=== PATIENT | female | born 2000 | race Caucasian/White ===

== ENCOUNTER → 2022-11-20 08:47 | Outpatient (CLI) | payer OTHER, SELFPAY ==
--- NOTE | 2022-11-20 08:59 | XR_ITS ---
FINAL REPORT TECHNIQUE: Sacrum and coccyx 3 views CLINICAL HISTORY: .SCOLIOSIS, ENDOMETRIOSIS, PREVIOUS BACK SURGERY COMPARISON: None FINDINGS: SACRUM AND COCCYX: Views of the sacrum and coccyx failed to reveal any evidence of acute bony abnormality. No evidence of fracture is seen. There are postoperative changes present consistent with an anterior and posterior L5-S1 fusion. IMPRESSION: No acute bony abnormality present. Postoperative changes compatible with an anterior and posterior L5-S1 fusion. Reviewed, Interpreted and Dictated by Bishop Hurtado MD Transcribed by Pinky Champion Authenticated and [facility]
--- NOTE | 2022-11-20 09:04 | XR_ITS ---
FINAL REPORT CLINICAL HISTORY: SCOLIOSIS COMPARISON: None FINDINGS: No fracture is identified. Disc spaces are well-preserved. The patient has undergone a prior L5-S1 anterior and posterior fusion with metallic instrumentation present. Alignment is normal. IMPRESSION: Unremarkable lumbar spine series. The patient is postop and L5-S1 anterior and posterior fusion. Reviewed, Interpreted and Dictated by Bishop Hurtado MD Transcribed by Pinky Champion Authenticated and [facility]
== END ==
PROVIDERS: PCP Chiropractor; Visit Provider Chiropractor
DX: M41.9 Scoliosis, unspecified (principal); N80.9 Endometriosis, unspecified
CPT/HCPCS: 72100; 72220